=== PATIENT | male | born 1960 | race Caucasian/White ===

== ENCOUNTER 2018-01-06 06:22 | Day surgery (SDC) | payer OTHER ==
[~2018-01-06 06:22] MED LIST: CEFAZOLIN 1 GM/50 ML (PMX) 50 ML IVPB; SOD CHLORIDE 0.9% 1,000 ML IV
[2018-01-06 09:03] LABS: POTASSIUM 4.9 mmol/L (3.5-5.1)
[2018-01-06] MEDS ORDERED: MIDAZOLAM 1 MG/ML 2 ML INJ (09:12)
[2018-01-06] MEDS ORDERED: KETOROLAC 30 MG INJ (09:12)
[2018-01-06] MEDS ORDERED: CEFAZOLIN 1 GM INJ (09:22)
[2018-01-06] MEDS ORDERED: FENTAnyl 50 MCG/ML VIAL (09:25)
[2018-01-06] MEDS: BUPIVACAINE 0.25% (MPF) 30 ML INJ (09:35)
[2018-01-06] MEDS: LIDOCAINE 1% (MPF) 30 ML INJ (09:37)
[2018-01-06] MEDS ORDERED: HYDROCODONE/APAP (5/325) TAB PO (10:00)
[2018-01-06] MEDS ORDERED: HYDROmorphONE 1 MG/5 ML IV SYRINGE IV (10:00)
[2018-01-06] MEDS ORDERED: OXYCODONE/ACETAMINOPHEN (5/325) TAB PO ×2 (10:00)
== END 2018-01-06 11:37 | disposition home or self-care (01) ==
LOC: SDS 06:22
DX: L72.0 Epidermal cyst (principal); I10 Essential (primary) hypertension
CPT/HCPCS: 14040; 84132; 88307